=== PATIENT | female | born 2000 | race African-American/Black ===

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

== ENCOUNTER 2023-05-30 21:15 | Emergency (ER) | payer MEDICAID ==
[~2023-05-30] VITALS: Ht 170.2 cm; Wt 45.4 kg
[2023-05-31 00:14] VITALS: BP 106/51; PULSE 60; RESP 16; TEMP 98.6; O2SAT 100
[2023-05-31] MEDS ORDERED: CEPH500C PO (00:35)
== END 2023-05-31 00:43 | disposition home or self-care (01) ==
LOC: ER 21:15
DX: T22.211A Burn of second degree of right forearm, initial encounter (principal); Z79.899 Other long term (current) drug therapy; X12.XXXA Contact with other hot fluids, initial encounter; Y93.89 Activity, other specified; Y92.89 Other specified places as the place of occurrence of the external cause; Y99.8 Other external cause status